=== PATIENT | male | born 1975 | race Caucasian/White ===

== ENCOUNTER 2020-10-19 16:03 | Outpatient (RCR) | payer OTHER, SELFPAY ==
--- NOTE | 2020-10-19 17:36 | PTOPEVAL ---
Thank you for referring Gagan Burdick to [facility] [place].? The patient is scheduled to be seen for therapy? ____x/week for ___ weeks. Please review, sign, date and return this plan of care ROSAURA. I agree with and certify that the following plan of care is medically necessary. Referring Physician Date Admitting Provider: Attending Provider: sean whelan Referring Provider: SaydaPT Outpatient Evaluation Start: 10/19/20 16:07 Freq: Status: Active Protocol: Document 10/19/20 16:08 ACR (Rec: 10/19/20 17:34 ACR [id number]) Therapy Assessment Status Assessment Status Assessment Status Evaluation Evaluation Information Problem Diagnosis low back pain Onset 10/04/20 Subjective Information Patient states that he has Query Text:As Reported By Patient/ been fighting his back pain Family for a few weeks and went to the chiropractor the past week and a half which is helping a bit. He states that the pain is mainly on the L side. He states he went to a neurologist and he was sent to therapy. Patient states the back pain started when he was getting laundry out of the dryer when he coughed and the pain came on. He states the only time the pain goes away after the chiroprator but only until he gets to his car. He has difficulty dressing himself especially socks and shoes, sitting for a period of time, standing up from a seated position, getting in and out of a car, decsending stairs. Patient states that he has some tingling down the front of the leg to the knee. 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
== END 2020-11-22 23:59 | disposition home or self-care (01) ==
LOC: CHSPT 16:03
DX: M54.5 Low back pain (principal)
CPT/HCPCS: 97012; 97014; 97110; 97161; G0283

== ENCOUNTER 2020-11-22 18:19 | Observation (INO) | payer OTHER, SELFPAY ==
[2020-11-22 18:27] VITALS: BP 132/94; PULSE 91; RESP 15; TEMP 36.7; O2SAT 98
--- NOTE | 2020-11-22 18:46 | ECG_ITS ---
Measurements Intervals [place] Rate: 87 P: 9 NH: 136 QRS: 45 QRSD: 87 T: 55 QT: 357 QTc: 431 Interpretive Statements SINUS RHYTHM NORMAL ECG Electronically Signed On 11-22-2020 20:09:57 CDT by Foreign Jamison D.O.
--- NOTE | 2020-11-22 19:04 | ED.GENADULT ---
HPI - General Adult General Chief complaint: GI Bleed Stated complaint: GI BLEED Time Seen by Provider: 11/22/20 18:21 Source: patient and RN notes reviewed Mode of arrival: EMS Limitations: no limitations History of Present Illness HPI narrative: This is a 44 year old male with history of alcohol abuse and chronic back pain who presents for evaluation of syncopal episode. Patient was at a family function, and he had a syncopal episode. He states he started to feel lightheaded, and his family witnessed him pass out. His family at bedside states patient was standing up and he became diaphoretic. They were able to catch patient and sit him against a chair. They report patient's blood pressure was low and he was found to have blood in his underwear. Patient admits to drink multiple beers today and he drinks daily. He has also been taking Tylenol and Aleve daily for his chronic back pain. Prior to his syncopal episode he denies having chest pain, sob, nausea, vomiting or diarrhea. He did notice his stools were dark today. He denies previous diagnosis of PUD, gastritis, esophageal varices or GI bleedings. Related Data Home Medications Medication Instructions Recorded Confirmed lisinopril-hydrochlorothiazide 1 tablet PO DAILY 11/22/20 11/23/20 fluoxetine [Prozac] 40 mg PO DAILY 11/23/20 11/23/20 nicotine 1 patch TRANSDERMAL DAILY 11/23/20 11/23/20 Allergies Allergy/AdvReac Type Severity Reaction Status Date / Time No Known Allergies Allergy Verified 11/22/20 19:10 Review of Systems Review of Systems: All systems reviewed & are unremarkable except as noted in HPI and below PMFSH Past Medical History Medical History (Updated 11/23/20 @ 02:25 by Meaghan Hammond MD) Back pain Surgical History Surgical History (Updated 11/22/20 @ 19:09 by Meagahn Hammond MD) No pertinent past surgical history Family History Family History (Updated 11/23/20 @ 00:42 by Maddi Hwang RN) Father Lymphoma Mother Uterine cancer Social History Social History (Updated 11/22/20 @ 19:10 by Meaghan Hammond MD) Smoking status: Former smoker Smokeless tobacco user: other Alcohol intake: current Drinks per week: 90 Substance use: never Substance use type: does not use Gender identity (if verbalized by the patient): Male Sexual Orientation (if Verbalized by the Patient): Straight or Heterosexual Spiritual care concerns: No Exam Const: General: no acute distress and alert Orientation/consciousness: patient oriented x3 HENMT: Head: normocephalic and atraumatic Face and sinus: face symmetric Mouth: Yes Normal oral and palatal mucosa present, Yes lip normal, Yes oropharynx normal and Yes moist mucous membranes Eyes: EOM: EOMs intact bilaterally Chest: Chest palpation & inspection: normal inspection of the chest Resp: Effort & Inspection: normal respiratory effort and no retractions Auscultation: clear to auscultation bilaterally Cardio: Rate: regular rate Rhythm: regular rhythm Heart sounds: no murmurs GI: GI Palp: Yes Soft to palpation, No Tenderness to palpation present (GI) and No Guarding due to palpation present (GI) Auscultation: normal bowel sounds Rectal Exam: Abnormal stool present and heme positive stool Other: no external hemorrhoids, on digital exam dark blood present, no active bleeding Skin: General skin exam: normal color Rashes: no rashes Neuro: General: patient oriented x3, moves all extremities and CN's II-XI intact bilaterally Psych: Mental Status: mental status grossly normal Affect: normal affect Course Reevaluation(s) Reevaluation #1: I discussed with patient that he will be admitted for possible GI bleed as cause of his syncopal episode. He has been given IVF and protonix. Date: 11/22/20 Time: 21:30 Consultations Consultation #1: I Discussed case with DR. Coleman. She accepts patient for observation for syncope and GI bleeding. She agrees with amina
[2020-11-22 19:13] VITALS: BP 116/84; BP 129/80; PULSE 104; PULSE 85
[2020-11-22 19:14] VITALS: BP 102/66; PULSE 109
[2020-11-22 19:53] LABS: Basophils Absolute Auto 0.1 K/mm3 (0.0-0.1); Basophils Percent Auto 0.6 % (0.2-1.2); Eosinophils Percent Auto 0.1 % (0-4.4); Hematocrit 36.2 % (42.0-52.0); Hemoglobin 12.2 g/dL (14.0-18.0); Immature Granulocyte Absolute 0.15 K/mm3 (0.00-0.031); Immature Granulocyte Percent A 1.7 % (0-0.5); Mean Corpuscular HGB Conc 33.7 g/dl (32-36); Mean Corpuscular Hemoglobin 34.6 pg (26-34); Mean Corpuscular Volume 102.5 fl (80-100); Mean Platelet Volume 9.3 fl (7.4-10.4); Monocytes Absolute Auto 0.7 K/mm3 (0.1-0.6); Monocytes Percent Auto 7.9 % (2.6-8.5); Neutrophils Absolute Auto 7.2 K/mm3 (1.3-6.7); Neutrophils Percent Auto 80.7 % (45.5-73.1); Platelet Count Result 180 k/mm3 (150-375); Red Blood Count 3.53 M/mm3 (4.6-6.20); White Blood Count 8.9 K/mm3 (4.5-10.0)
[2020-11-22] MEDS: PANTOPRAZOLE SODIUM IV 40 MG VIAL 80 MG IV PUSH (19:56)
[2020-11-22] MEDS: SODIUM CHLORIDE 0.9% IV 1,000 ML 999 ML IV CONT (19:57)
[2020-11-22 19:59] LABS: Ethanol 111 mg/dL (<10); INR 0.9; Prothrombin Time 12.2 Seconds (11.1-14.7)
[2020-11-22 20:00] LABS: Alanine Aminotransferase 59 U/L (4-50); Albumin Level 3.7 g/dL (3.5-5.1); Alkaline Phosphatase 46 U/L (38-126); Anion Gap 12 mmol/L (8-16); Aspartate Amino Transferase 62 U/L (17-59); Bilirubin,Total 0.5 mg/dL (0.2-1.3); Blood Urea Nitrogen 11 mg/dL (9-20); Calcium 8.4 mg/dL (8.4-10.2); Carbon Dioxide 19 mmol/L (22-30); Chloride 96 mmol/L (98-107); Estimated CRCL calculation 148 ml/min; Estimated Glomerular Filt Rate > 60; Glucose 94 mg/dL (65-110); Magnesium 1.8 mg/dL (1.6-2.3); Partial Thromboplastin Time 23.2 SECONDS (22.3-36.8); Potassium 3.8 mmol/L (3.4-5.0); Sodium 127 mmol/L (137-145)
[2020-11-22 20:10] LABS: Troponin I < 0.012 ng/mL (0.000-0.034)
[2020-11-22 21:16] VITALS: BP 131/91; PULSE 92; RESP 16; O2SAT 98
[2020-11-22 23:37] VITALS: BP 147/94; PULSE 93; RESP 12; O2SAT 98
[2020-11-23] VITALS (16 sets, daily range): BP systolic 96–176; BP diastolic 58–93; PULSE 75–110; RESP 16–20; TEMP 36.1–36.7; O2SAT 96–99; BMI 28.3
--- NOTE | 2020-11-23 | ECHO_ITS ---
Patient Info Name: Gagan Burdick Age: 44 years : 1975 Gender: Male Ht: 73 in Wt: 215 lbs BSA: 2.26 m2 HR: 83 bpm BP: 155 / 86 mmHg Heart Rhythm: Sinus Rhythm Exam Date: 11/23/2020 12:48 PM Exam Location: [facility] Pulmonary Exam Room: 246 Patient Status: Outpatient Admit Date: 11/22/2020 Staff Ordering Physician: Kayley Colon MD Bolt Loader: Estefania Hinkle RDCS Attending Provider: Kusum Coleman MD Exam Type: CA echo doppler color flow Study Info Indications - syncope Complete two-dimensional, color flow and Doppler transthoracic echocardiogram is performed. Summary 1. Complete two-dimensional, color flow and Doppler transthoracic echocardiogram is performed. 2. Left ventricular chamber dimension is normal. 3. Left ventricular systolic function is hyperdynamic, estimated at >70%. 4. There is mildly increased left ventricular wall thickness. 5. Right atrial chamber dimension is mildly enlarged. 6. There is trace tricuspid valve regurgitation. 7. No pulmonary hypertension, estimated pulmonary arterial systolic pressure is 28 mmHg. 8. There is no mitral valve regurgitation. 9. There is no aortic valve stenosis. Left Ventricle Left ventricular chamber dimension is normal. Left ventricular systolic function is hyperdynamic, estimated at >70%. There is mildly increased left ventricular wall thickness. The left ventricular diastolic function is abnormal. Right Ventricle Right ventricular chamber dimension is normal. Right ventricular systolic function is normal. Left Atria Left atrial chamber dimension is normal. Right Atria Right atrial chamber dimension is mildly enlarged. Aortic Valve The aortic valve is not well visualized. There is no aortic valve stenosis. There is no aortic valve regurgitation. Pulmonic Valve The pulmonic valve is not well visualized. Mitral Valve The mitral valve has normal leaflets. There is no mitral valve regurgitation. Tricuspid Valve The tricuspid valve leaflets are normal. There is trace tricuspid valve regurgitation. No pulmonary hypertension, estimated pulmonary arterial systolic pressure is 28 mmHg. Pericardium/Pleural The pericardium appears normal. Inferior Vena Cava Normal inferior vena cava with >50% collapse upon inspiration consistent with normal right atrial pressure, 5 mmHg. Aorta The aortic root size at the sinus of Valsalva is normal. Left Ventricular Outflow Tract Name Value Normal LVOT 2D LVOT Diameter 2.1 cm LVOT Doppler LVOT Peak Gradient 8 mmHg LVOT Mean Gradient 5 mmHg LVOT VTI 27 cm LVOT VTI/AV VTI Ratio 1.0 LVOT Stroke Volume 91 ml LVOT CO 20.1 l/min LVOT CI 8.9 l/min/m2 Pulmonic Valve Name Value Normal
--- NOTE | 2020-11-23 00:33 | ADMGEN ---
This patient, Gagan Burdick, was admitted to Medical Room 246-. Patient/family oriented to hospital policies and general routines including ID bracelet, bed and alarms, visiting hours, pain management, procedures, bathroom and other care routines, personal items, smoking policy, room service/diet, and visiting hours. Information on how to activate the Rapid Response Team has been discussed. Patient/Family are encouraged to report perceived risks to care and to ask questions if they do not understand what they are told or what they should do.
--- NOTE | 2020-11-23 00:42 | PM.IMHP ---
H&P: HPI History of Present Illness Date/Time: 11/23/20 00:42 Chief Complaint: Bright red blood blood per rectum Narrative: This is a 44-year-old male with past medical history significant for hypertension, tobacco dependence, alcohol dependence patient drinks 6-12 beers daily had a recent fall while intoxicated with alcohol with scrapes to both of his knees. Patient presented today after he had an episode where he became diaphoretic and had a near syncope he then noticed a bleed through his rectum of bright red blood. He presented to the emergency room via EMS. Patient states that he has been his usual state of health prior to this no prior episodes of bleeding or black stool no hematemesis no weight loss no nausea or vomiting. However he has had lower back pain for which he had been scheduled for MRI in the outpatient setting and he has been taking a lot of Aleve for this. Preliminary workup was significant for a guaiac-positive stool. Review of Systems Review of Systems: Near-syncope bright red blood per rectum episode Constitutional: Constitutional: Denies chills, Denies fatigue and Denies fever(s) Eyes: Eyes: Denies change in vision ENT: Denies dysphagia, Denies nasal congestion, Denies nasal discharge, Denies nasal obstruction and Denies odynophagia Cardiovascular: Cardiovascular: Reports syncope, Denies irregular heart rhythm, Reports lightheadedness, Denies radiating jaw, neck or arm pain, Denies palpitations and Denies dyspnea on exertion Respiratory: Respiratory: Denies cough and Denies dyspnea Gastrointestinal: Gastrointestinal: Denies melena, Reports hematochezia, Denies dyspepsia, Denies nausea and Denies vomiting Genitourinary: Genitourinary: Reports no additional male genitourinary complaints Musculoskeletal: Musculoskeletal: Reports back pain Comments: Lower back pain Integumentary/Breasts: Skin/Breast: Reports system reviewed and no additional complaints, except as docu Neurologic: Reports tremor(s) Psychiatric: Psychiatric: Reports anxiety Endocrine: Endocrine: Reports no additional endocrine complaints Hematologic/Lymphatic: Hematologic/Lymphatic: Reports no additional hematologic/lymphatic complaints Allergic/Immunologic: Allergic/Immunologic: Reports no additional allergic/immunologic complaints PMFSH Past Medical History Medical History (Updated 11/23/20 @ 00:59 by Kusum Coleman MD) Back pain Surgical History Surgical History (Updated 11/22/20 @ 19:09 by Meaghan Hammond MD) No pertinent past surgical history Family History Family History (Updated 11/23/20 @ 00:42 by Maddi Hwang RN) Father Lymphoma Mother Uterine cancer Social History Social History (Updated 11/22/20 @ 19:10 by Meaghan Hammond MD) Alcohol intake: current Drinks per week: 90 Substance use: never Substance use type: does not use Gender identity (if verbalized by the patient): Male Sexual Orientation (if Verbalized by the Patient): Straight or Heterosexual Spiritual care concerns: No Meds Home Medications and Allergies Home Medications Medication Instructions Recorded Confirmed Type lisinopril-hydrochlorothiazide 1 tablet PO DAILY 11/22/20 11/23/20 History fluoxetine [Prozac] 40 mg PO DAILY 11/23/20 11/23/20 History nicotine 1 patch TRANSDERMAL DAILY 11/23/20 11/23/20 History Allergies Allergy/AdvReac Type Severity Reaction Status Date / Time No Known Allergies Allergy Verified 11/22/20 19:10 Vital Signs Vital Signs - 24 hr 11/22/20 18:27 11/22/20 19:13 11/22/20 19:14 Temperature 98.1 F Pulse Rate 91 104 H 109 H Respiratory Rate 15 Blood Pressure 132/94 H 116/84 102/66 Pulse Oximetry 98 11/22/20 21:16 11/22/20 23:37 11/23/20 00:35 Temperature 97.7 F Pulse Rate 92 93 82 Respiratory Rate 16 12 20 Blood Pressure 131/91 H 147/94 H 176/92 H Pulse Oximetry 98 98 99 Exam Narrative: Laying in gurney Const: General: cooperative, comfo
[2020-11-23] MEDS: SODIUM CHLORIDE 0.9% IV 1,000 ML 125 ML IV CONT ×2 (01:01→22:13)
[2020-11-23] MEDS: LORazepam INJ (*CRX) 2 MG/ML VIAL IV PUSH (01:07)
[2020-11-23 01:52] LABS: Hematocrit 33.4 % (42.0-52.0); Hemoglobin 11.4 g/dL (14.0-18.0)
[2020-11-23] MEDS: THIAMINE HCL INJ 100 MG, FOLIC ACID INJ 1 MG, MULTIVITAMINS-12 INJ VIAL 1 5 ML, MULTIVI... IV CONT (03:47)
[2020-11-23] MEDS: chlordiazePOXIDE (*CRX) 25 MG CAPSULE 50 MG PO ×3 (05:50→23:55)
[2020-11-23 05:55] LABS: Hematocrit 32.6 % (42.0-52.0)
--- NOTE | 2020-11-23 07:14 | PM.IMPN ---
Progress Note: A&P Assessment and Plan (1) BRBPR (bright red blood per rectum): Code(s): K62.5 - Hemorrhage of anus and rectum Status: Acute Assessment and Plan: GI consult recommendations appreciated. He will have upper GI endoscopy today. Continue pantoprazole 40 mg IV twice a day for now. Patient has been taking Aleve with 2 tablets every 8 hours for the last 10-14 days. Continue to monitor H and H. his hemoglobin was 11.0 today. PRBC transfusion not indicated at this time. PRBC transfusion if indicated and hemoglobin is down to 8 or less. (2) Alcohol dependence: Code(s): F10.20 - Alcohol dependence, uncomplicated Status: Acute Assessment and Plan: Currently on CIWA protocol. He is mildly tremulous. Ativan as per CIWA protocol. Continue Librium and wean based on his symptoms. Banana bag head worker will provide information about resources to quit drinking. (3) Tobacco dependence: Code(s): F17.200 - Nicotine dependence, unspecified, uncomplicated Status: Acute Assessment and Plan: Nicotine patch as needed (4) Alcohol withdrawal: Code(s): F10.239 - Alcohol dependence with withdrawal, unspecified Status: Acute Assessment and Plan: As above (5) Hyponatremia: Code(s): E87.1 - Hypo-osmolality and hyponatremia Status: Acute Assessment and Plan: He has received banana bag and Ringer's lactate. Will put him on normal saline and his his serum sodium was 127 today. (6) Syncope: Code(s): R55 - Syncope and collapse Status: Acute Assessment and Plan: Had 2 episode of syncope yesterday as well as 1 few months ago. Likely related to his alcohol and GI issues. Echo has been ordered. Continue to monitor on telemetry. Cardiology will be consulted. Subjective Date/time seen: 11/23/20 07:14 He has mentioned that he was taking Aleve for his back pain for the last 10-14 days with 2 tablets every 6-8 hours. He had 1 bowel movement here which was dark in color. He was tremulous today. Takes 6-10 beers a day and gets tremulous and anxious if he does not drink. He had 2 episodes of syncope yesterday. He recalled 1 episode of syncope few months ago as well. He denied have any focal neurological weakness visual symptoms headache nausea vomiting hematochezia. Denied have any shortness of breath chest pain or abdominal pain. Review of Systems Review of Systems: A comprehensive review of systems has been reviewed with the patient and most of the symptoms are negative except the one's mentioned above in HPI. 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 Anxious. Extremities no edema Objective Data Vital Signs Vital Signs: Vital Signs - 24 hr 11/22/20 18:27 11/22/20 19:13 11/22/20 19:14 Temperature 36.7 C Pulse Rate 91 104 H 109 H Respiratory Rate 15 Blood Pressure 132/94 H 116/84 102/66 Pulse Oximetry 98 11/22/20 21:16 11/22/20 23:37 11/23/20 00:35 Temperature 36.5 C Pulse Rate 92 93 82 Respiratory Rate 16 12 20 Blood Pressure 131/91 H 147/94 H 176/92 H Pulse Oximetry 98 98 99 11/23/20 01:30 11/23/20 01:48 11/23/20 04:00 Temperature Pulse Rate 85 82 Respiratory Rate Blood Pressure 146/86 H Pulse Oximetry 11/23/20 05:15 Temperature 36.1 C L Pulse Rate 75 Respiratory Rate 16 Blood Pressure 155/86 H Pulse Oximetry 98 Intake/Output Intake/Output: Intake & Output 11/20/20 11/21/20 11/22/20 11/23/20 23:59 23:59 23:59 23:59 Intake Total 1000 Output Total 1200 Balance 1000 -1200 Meds/Results Medications: Active Medications Generic Name Dose Route Start Last Admin Trade Name Freq PRN
--- NOTE | 2020-11-23 07:21 | WPDGICN ---
Assessment and Plan Assessment and plan (1) Acute GI bleeding: Code(s): K92.2 - Gastrointestinal hemorrhage, unspecified Status: Acute Assessment and Plan: given that his stools are primarily black and he has been on Aleve he most likely has an upper gastrointestinal bleed. Will schedule him for EGD to be done later today (2) Alcohol abuse: Code(s): F10.10 - Alcohol abuse, uncomplicated Status: Acute Assessment and Plan: he states that he went to in to rehab Once, but obviously relapsed. He is a bit tremulous this morning. Will need to watch for possible withdrawal syndrome. GI Consult Note Consult date/time: 11/23/20 07:21 HPI: Gagan Burdick is a 44 year old male Who presented to the emergency room with a history of being lightheaded and having black stool. He states that he drinks regularly, 6-12 beers per day and over the last week he has had friends in town and has been drinking more than usual and not eating well. He then noted his stools were black. They also have been a rather loose. He states he also cell some reddish blood in his underwear. He has a bad back and for this he has been using 6 relieved tablets each day. He has had no prior gastrointestinal illnesses. He was once admitted for detox related to alcohol abuse several years ago but not at this hospital. He is not aware of any family history of digestive diseases. Contrary to the ER note he does not have a significant amount of red blood in his stool. It mainly black and liquid Review of Systems Review of Systems: All systems reviewed & are unremarkable except as noted in HPI and below PMFSH Past Medical History Medical History Back pain Surgical History Surgical History No pertinent past surgical history Family History Family History Father Lymphoma Mother Uterine cancer Social History Social History Smoking status: Former smoker Smokeless tobacco user: other Alcohol intake: current Drinks per week: 90 Substance use: never Substance use type: does not use Gender identity (if verbalized by the patient): Male Sexual Orientation (if Verbalized by the Patient): Straight or Heterosexual Spiritual care concerns: No Meds Home Medications and Allergies Home Medications Medication Instructions Recorded Confirmed Type lisinopril-hydrochlorothiazide 1 tablet PO DAILY 11/22/20 11/23/20 History fluoxetine [Prozac] 40 mg PO DAILY 11/23/20 11/23/20 History nicotine 1 patch TRANSDERMAL DAILY 11/23/20 11/23/20 History Allergies Allergy/AdvReac Type Severity Reaction Status Date / Time No Known Allergies Allergy Verified 11/22/20 19:10 Vital Signs Vital Signs - 24 hr 11/22/20 18:27 11/22/20 19:13 11/22/20 19:14 Temperature 36.7 C Pulse Rate 91 104 H 109 H Respiratory Rate 15 Blood Pressure 132/94 H 116/84 102/66 Pulse Oximetry 98 11/22/20 21:16 11/22/20 23:37 11/23/20 00:35 Temperature 36.5 C Pulse Rate 92 93 82 Respiratory Rate 16 12 20 Blood Pressure 131/91 H 147/94 H 176/92 H Pulse Oximetry 98 98 99 11/23/20 01:30 11/23/20 01:48 11/23/20 04:00 Temperature Pulse Rate 85 82 Respiratory Rate Blood Pressure 146/86 H Pulse Oximetry 11/23/20 05:15 Temperature 36.1 C L Pulse Rate 75 Respiratory Rate 16 Blood Pressure 155/86 H Pulse Oximetry 98 Exam Neuro: General: patient oriented x3 Motor exam (neuro): Tremors during motor activity present ( shaky hands and facial muscles) Results Labs CBC & Chem 7: 11/23/20 05:31 11/22/20 19:28 Labs: Short CBC 11/22/20 11/23/20 11/23/20 Range/Units 19:28 01:45 05:31 WBC 8.9 (4.5-10.0) K/mm3 Hgb 12.2 L 11.4 L 11.0 L (14.0-18
[2020-11-23] MEDS: NICOTINE (*PBKC) 21 MG PATCH 1 PATCH TRANSDERM (09:03)
[2020-11-23] MEDS: PANTOPRAZOLE SODIUM IV 40 MG VIAL IV PUSH ×2 (09:04→22:14)
[2020-11-23 09:45] LABS: Hematocrit 34.2 % (42.0-52.0); Hemoglobin 11.6 g/dL (14.0-18.0)
[2020-11-23] MEDS: LORazepam INJ (*CRX) 2 MG/ML VIAL 1 MG IV PUSH ×3 (09:51→17:49)
--- NOTE | 2020-11-23 13:01 | WPDANESEPPF ---
Anes - Initial Pre Proc Eval Procedure: Operation Date: 11/23/20 14:15 Proposed Procedures p Esophagogastroduodenoscopy - Leonidas Catalan MD Date/Time: 11/23/20 13:01 Surgeon: Kusum Coleman MD Pre Op Diagnosis: Syncope, GI Bleeding, Alcohol Abuse Patient Data Age: 44 Gender: M Height: 1.85 m Weight: 97.6 kg Last Vital Signs Temp 36.1 C L 11/23/20 05:15 Pulse 75 11/23/20 05:15 Resp 16 11/23/20 05:15 BP 155/86 H 11/23/20 05:15 Pulse Ox 98 11/23/20 05:15 Allergies Allergy/AdvReac Type Severity Reaction Status Date / Time No Known Allergies Allergy Verified 11/23/20 13:59 Home Medications Medication Instructions Recorded Confirmed Type lisinopril-hydrochlorothiazide 1 tablet PO DAILY 11/22/20 11/23/20 History fluoxetine [Prozac] 40 mg PO DAILY 11/23/20 11/23/20 History nicotine 1 patch TRANSDERMAL DAILY 11/23/20 11/23/20 History chlordiazepoxide HCl 25 mg PO Q8-10H PRN #9 cap 11/24/20 Rx pantoprazole 40 mg PO QAM 28 Days #28 tablet 11/24/20 Rx Laboratory Tests 11/22/20 11/22/20 11/22/20 19:28 19:28 19:28 WBC 8.9 K/mm3 K/mm3 (4.5-10.0) RBC 3.53 M/mm3 L M/mm3 (4.6-6.20) Hgb 12.2 g/dL L g/dL (14.0-18.0) Hct 36.2 % L % (42.0-52.0) MCV 102.5 fl H fl (80-100) MCH 34.6 pg H pg (26-34) MCHC 33.7 g/dl g/dl (32-36) RDW 12.0 % % (11.5-14.5) Plt Count 180 k/mm3 k/mm3 (150-375) MPV 9.3 fl fl (7.4-10.4) Immature Gran % (Auto) 1.7 % H % (0-0.5) Neut % (Auto) 80.7 % H % (45.5-73.1) Lymph % (Auto) 9.0 % L % (18.3-44.2) Howell % (Auto) 7.9 % % (2.6-8.5) Eos % (Auto) 0.1 % % (0-4.4) Baso % (Auto) 0.6 % % (0.2-1.2) Lymph # (Auto) 0.80 K/mm3 L K/mm3 (0.9-3.2) Howell # (Auto) 0.7 K/mm3 H K/mm3 (0.1-0.6) Eos # (Auto) 0.0 K/mm3 K/mm3 (0-0.3) Baso # (Auto) 0.1 K/mm3 K/mm3 (0.0-0.1) Abs Immat Gran (auto) 0.15 K/mm3 H K/mm3 (0.00-0.031) Absolute Neuts (auto) 7.2 K/mm3 H K/mm3 (1.3-6.7) Absolute Nucleated RBC 0.0 K/mm3 K/mm3 (0.0-0.012) Nucleated RBC % 0.0 % % (0.0-0.2) PT 12.2 Seconds Seconds (11.1-14.7) INR 0.9 APTT 23.2 SECONDS SECONDS (22.3-36.8) Sodium 127 mmol/L L mmol/L (137-145) Potassium 3.8 mmol/L mmol/L (3.4-5.0) Chloride 96 mmol/L L mmol/L (98-107) Carbon Dioxide 19 mmol/L L mmol/L (22-30) Anion Gap 12 mmol/L mmol/L (8-16) BUN 11 mg/dL mg/dL (9-20) Creatinine 0.60 mg/dL L mg/dL (0.7-1.3) Estim Creat Clear Calc 148 ml/min ml/min Estimated GFR > 60 (59 - ) Glucose 94 mg/dL mg/dL (65-110) Calcium 8.4 mg/dL mg/dL (8.4-10.2) Magnesium 1.8 mg/dL mg/dL (1.6-2.3) Total Bilirubin 0.5 mg/dL mg/dL (0.2-1.3) AST 62 U/L H U/L (17-59) ALT 59 U/L H U/L (4-50) Alkaline Phosphatase 46 U/L U/L (38-126) Troponin I < 0.012 ng/mL ng/mL (0.000-0.034) Total Protein 7.0 g/dL g/dL (6.3-8.2) Albumin 3.7 g/dL g/dL (3.5-5.1) Ethyl Alcohol Blood Type Antibody Screen 11/22/20 11/22/20 11/23/20 19:28 19:28 01:45 WBC RBC Hgb 11.4 g/dL L g/dL (14.0-18.0) Hct 33.4 % L % (42.0-52.0) MCV MCH MCHC RDW Plt Count MPV Immature Gran % (Auto) Neut % (Auto) Lymph % (Auto) Howell % (Auto) Eos % (Auto) Baso % (Auto) Lymph # (Auto) Howell # (Auto) Eos # (Auto) Baso # (Auto) Abs Immat Gran (auto) Absolute
--- NOTE | 2020-11-23 13:45 | PC.NURSE ---
pt to GI lab via galo
[2020-11-23] MEDS: LACTATED RINGERS 1,000 ML 150 ML IV CONT (14:12)
[2020-11-23] MEDS: SIMETHICONE ORAL SUSPENSION 20 MG/0.3 ML 30 ML BOTTLE 0.6 ML PO (15:01)
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
[2020-11-23 20:22] LABS: Hematocrit 35.4 % (42.0-52.0)
[2020-11-24] VITALS: PULSE 76
[2020-11-24] MEDS: SODIUM CHLORIDE 0.9% IV 1,000 ML 125 ML IV CONT
[2020-11-24 04:00] VITALS: PULSE 67
[2020-11-24] MEDS: chlordiazePOXIDE (*CRX) 25 MG CAPSULE 50 MG PO (05:47)
[2020-11-24 06:00] VITALS: BP 127/78; PULSE 65; RESP 16; TEMP 36.8; O2SAT 98
[2020-11-24 06:15] LABS: Basophils Absolute Auto 0.1 K/mm3 (0.0-0.1); Eosinophils Absolute Auto 0.1 K/mm3 (0-0.3); Eosinophils Percent Auto 1.7 % (0-4.4); Hematocrit 35.2 % (42.0-52.0); Hemoglobin 11.5 g/dL (14.0-18.0); Immature Granulocyte Absolute 0.08 K/mm3 (0.00-0.031); Immature Granulocyte Percent A 1.4 % (0-0.5); Lymphocytes Absolute Auto 1.35 K/mm3 (0.9-3.2); Lymphocytes Percent Auto 23.2 % (18.3-44.2); Mean Corpuscular HGB Conc 32.7 g/dl (32-36); Mean Corpuscular Hemoglobin 34.3 pg (26-34); Mean Corpuscular Volume 105.1 fl (80-100); Mean Platelet Volume 10.1 fl (7.4-10.4); Monocytes Absolute Auto 0.6 K/mm3 (0.1-0.6); Neutrophils Absolute Auto 3.6 K/mm3 (1.3-6.7); Neutrophils Percent Auto 61.7 % (45.5-73.1); Platelet Count Result 171 k/mm3 (150-375); Red Blood Count 3.35 M/mm3 (4.6-6.20); Red Cell Distribution Width 11.9 % (11.5-14.5); White Blood Count 5.8 K/mm3 (4.5-10.0)
[2020-11-24 06:28] LABS: Anion Gap 3 mmol/L (8-16); Blood Urea Nitrogen 11 mg/dL (9-20); Calcium 8.5 mg/dL (8.4-10.2); Carbon Dioxide 31 mmol/L (22-30); Chloride 99 mmol/L (98-107); Estimated CRCL calculation 128 ml/min; Estimated Glomerular Filt Rate > 60; Glucose 100 mg/dL (65-110); Magnesium 1.8 mg/dL (1.6-2.3); Sodium 133 mmol/L (137-145)
[2020-11-24 08:00] VITALS: PULSE 75
[2020-11-24] MEDS: PANTOPRAZOLE SODIUM IV 40 MG VIAL IV PUSH (08:03)
[2020-11-24] MEDS: NICOTINE (*PBKC) 21 MG PATCH 1 PATCH TRANSDERM (08:04)
[2020-11-24] MEDS: FLUoxetine HCL 20 MG CAPSULE 40 MG PO (08:04)
--- NOTE | 2020-11-24 08:47 | WPDGIPROGNO ---
Progress Note: A&P Assessment and Plan (1) Acute GI bleeding: Code(s): K92.2 - Gastrointestinal hemorrhage, unspecified Status: Acute Assessment and Plan: There is no evidence of bleeding now. His blood counts are stable. I told that I would want him to call me if he has any sign of bleeding. Also told Him she get a repeat CBC with his primary care physician in a couple weeks. (2) Alcohol withdrawal: Code(s): F10.239 - Alcohol dependence with withdrawal, unspecified Status: Acute Assessment and Plan: he is not shaky today as yesterday. I believe that he will do well now. He is hopeful that he will be going home on chlordiazepoxide (3) Alcohol abuse: Code(s): F10.10 - Alcohol abuse, uncomplicated Status: Acute Assessment and Plan: he again acknowledge at this is a problem and he is going to do his best to abstain from alcohol. I reminded him that continued use of alcohol could cause serious liver disease with cirrhosis leading to portal hypertension, esophageal varices etcetera Subjective Date/time seen: 11/24/20 08:47 he feels good today. He slept fairly well last night. He denies abdominal pain nausea vomiting, in fact is eating his breakfast. Yesterday when we discussed doing a colonoscopy he seemed to be very nauseated and I did not think he could tolerate a prep. Review of Systems Review of Systems: All systems reviewed & are unremarkable except as noted in HPI and below Exam Const: General: comfortable, alert and awake Orientation/consciousness: patient oriented x3 GI: Inspection: normal to inspection GI Palp: Yes Soft to palpation, No Tenderness to palpation present (GI) and Yes No hepatosplenomegaly present Auscultation: normal bowel sounds Objective Data Vital Signs Vital Signs: Vital Signs - 24 hr 11/23/20 12:00 11/23/20 14:00 11/23/20 14:02 Temperature 36.4 C 36.4 C L Pulse Rate 79 85 95 Respiratory Rate 18 18 Blood Pressure 130/88 135/93 H Pulse Oximetry 99 97 11/23/20 15:12 11/23/20 15:22 11/23/20 15:32 Temperature Pulse Rate 80 90 85 Respiratory Rate 16 18 19 Blood Pressure 113/67 135/87 131/90 Pulse Oximetry 99 99 99 11/23/20 20:03 11/23/20 22:00 11/23/20 22:06 Temperature 36.7 C 36.7 C Pulse Rate 99 100 100 Respiratory Rate 16 16 Blood Pressure 119/69 119/69 Pulse Oximetry 96 96 11/23/20 22:07 11/24/20 00:00 11/24/20 04:00 Temperature 36.7 C Pulse Rate 110 H 76 67 Respiratory Rate 18 Blood Pressure 96/58 L Pulse Oximetry 96 11/24/20 06:00 Temperature 36.8 C Pulse Rate 65 Respiratory Rate 16 Blood Pressure 127/78 Pulse Oximetry 98 Intake/Output Intake/Output: Intake & Output 11/21/20 11/22/20 11/23/20 11/24/20 23:59 23:59 23:59 23:59 Intake Total 1000 3400 2000 Output Total 2050 1600 Balance 1000 1350 400 Meds/Results Medications: Active Medications Generic Name Dose Route Start Last Admin Trade Name Freq PRN Reason Stop Dose Admin Chlordiazepoxide HCl 50 mg 11/23/20 06:00 11/24/20 05:47 Chlordiazepoxide (*Crx) 25 Mg Capsule PO 50 mg Q6HR ANTONI Administration Fluoxetine HCl 40 mg 11/23/20 09:00 11/24/20 08:04 Fluoxetine Hcl 20 Mg Capsule PO 40 mg DAILY ANTONI Administration Hydralazine HCl 10 mg 11/23/20 00:41 Hydralazine Hcl 20 Mg/Ml Vial IV PUSH Q8H PRN Blood Pressure - High [id number] Sodium Chloride 1,000 mls @ 75 mls/hr 11/22/20 21:50 11/24/20 00:00 Normal Saline Iv IV CONT 125 mls/hr .[id number] ANTONI Administration Lorazepam 1 mg 11/23/20 01:00 11/23/20 17:49 Lorazepam Inj (*Crx) 2 Mg/Ml Vial IV PUSH 1 mg Q3H PRN Administration Tremors, DT's Nicotine 1 patch 11/23/20 09:00 11/24/20 08:04 Nicotine (*Pbkc) 21 Mg Patch TRANSDERM 1 patch DAILY ANTONI Administration Ondansetron HCl 4 mg 11/22/20 21:50 Ondansetron Inj 4 Mg/2 Ml Vial IV PUSH Q4H PRN Nausea Pantoprazole Sodi
--- NOTE | 2020-11-24 11:09 | PM.DS ---
DS: Admitting Diagnosis Admitting Diagnosis GI bleed with bright red blood per rectum Alcohol abuse Smoker Alcohol withdrawal DS: Discharge Diagnosis Discharge Diagnosis (1) BRBPR (bright red blood per rectum): Code(s): K62.5 - Hemorrhage of anus and rectum Status: Acute Assessment and Plan: GI consult recommendations appreciated. He had upper GI endoscopy which showed esophagitis and duodenitis. No further intervention planned by gastroenterology service and he is clear for discharge. His H&H remained stable. Continue pantoprazole 40 mg IV twice a day while he was here in the hospital. He will be transitioned to p.o. pantoprazole at the time of discharge for 4 weeks. Patient has been taking Aleve with 2 tablets every 8 hours for the last 10-14 days. He was encouraged to stop taking it. Continue to monitor H and H. his hemoglobin was 11.0 today. He did not require any PRBC transfusion. He did not have any further bleeding with no hematochezia and melena. His hemodynamics remained stable. (2) Alcohol dependence: Code(s): F10.20 - Alcohol dependence, uncomplicated Status: Acute Assessment and Plan: Currently on CIWA protocol. He required only 2 doses of Ativan yesterday. Continue Librium and will be discharged on 3 more days of Librium. Banana bag was given custodial maintenance worker will provide information about resources to quit drinking. (3) Tobacco dependence: Code(s): F17.200 - Nicotine dependence, unspecified, uncomplicated Status: Acute Assessment and Plan: Nicotine patch as needed (4) Alcohol withdrawal: Code(s): F10.239 - Alcohol dependence with withdrawal, unspecified Status: Acute Assessment and Plan: As above (5) Hyponatremia: Code(s): E87.1 - Hypo-osmolality and hyponatremia Status: Acute Assessment and Plan: He has received banana bag and Ringer's lactate. Will put him on normal saline and his his serum sodium was 127 today. His serum sodium improved with normal saline. (6) Syncope: Code(s): R55 - Syncope and collapse Status: Acute Assessment and Plan: Had 2 episode of syncope yesterday as well as 1 few months ago. Likely related to his dehydration, alcohol and GI issues. Echo was performed. Ejection fraction 70%. There is mildly increased left ventricular wall thickness. No aortic wall stenosis. Trace tricuspid valve regurgitation. Cardiology service was consulted. No events reported on telemetry. No further recommendations from cardiology service. 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 Anxious. Extremities no edema DS: Data Data Completed and Pending Labs on day of discharge: Labs from last 24 hours 11/24/20 11/24/20 11/23/20 05:11 05:11 20:15 WBC 5.8 RBC 3.35 L Hgb 11.5 L 12.0 L Hct 35.2 L 35.4 L MCV 105.1 H MCH 34.3 H MCHC 32.7 RDW 11.9 Plt Count 171 MPV 10.1 Immature Gran % (Auto) 1.4 H Neut % (Auto) 61.7 Lymph % (Auto) 23.2 Grainger % (Auto) 11.0 H Eos % (Auto) 1.7 Baso % (Auto) 1.0 Lymph # (Auto) 1.35 Grainger # (Auto) 0.6 Eos # (Auto) 0.1 Baso # (Auto) 0.1 Abs Immat Gran (auto) 0.08 H Absolute Neuts (auto) 3.6 Absolute Nucleated RBC 0.0 Nucleated RBC % 0.0 Sodium 133 L Potassium 4.0 Chloride 99 Carbon Dioxide 31 H Anion Gap 3 L BUN 11 Creatinine 0.70 Estim Creat Clear Calc 128 Estimated GFR > 60 Glucose 100 Calcium 8.5 Magnesium 1.8
== END 2020-11-24 10:45 | disposition home or self-care (01) ==
LOC: ANHED 19:02 → ANH2MED 11-23 02:25
PROVIDERS: Internal Medicine Gastroenterology; Admitting Provider Internal Medicine; Emergency Provider General Practice; PCP Internal Medicine; Visit Provider Internal Medicine Critical Care Medicine
PROC: 0DJ08ZZ Inspection of Upper Intestinal Tract, Via Natural or Artificial Opening Endoscopic (ICD-10-PCS; CPT 43235; principal; 2020-11-23 14:15)
DX: K62.5 Hemorrhage of anus and rectum (principal); F10.239 Alcohol dependence with withdrawal, unspecified; R55 Syncope and collapse; E87.1 Hypo-osmolality and hyponatremia; K29.80 Duodenitis without bleeding; F17.290 Nicotine dependence, other tobacco product, uncomplicated; I10 Essential (primary) hypertension; K21.00 Gastro-esophageal reflux disease with esophagitis, without bleeding; Z79.1 Long term (current) use of non-steroidal anti-inflammatories (NSAID)
CPT/HCPCS: 43239; 36415; 80048; 80053; 80307; 83735; 84484; 85014; 85018; 85025; 85610; 85730; 86850; 86900; 86901; 87081; 93005; 93306; 96361; 96365; 96366; 96374; 96375; 96376; 99285; A9270; C9113; G0378; J2060; J2250; J2704; J3411; J3475; J7030; J7120

== ENCOUNTER 2020-12-16 18:21 | Emergency (ER) | payer OTHER, SELFPAY ==
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
--- NOTE | 2020-12-16 18:48 | ECG_ITS ---
Measurements Intervals [place] Rate: 114 P: 47 VT: 119 QRS: 60 QRSD: 90 T: 76 QT: 320 QTc: 442 Interpretive Statements SINUS TACHYCARDIA BASELINE ARTIFACT- I, II, III, AVR, AVL, V1 ABNORMAL ECG Electronically Signed On 12-17-2020 7:56:56 CDT by Foreign Jamison D.O.
[2020-12-16 18:59] VITALS: BP 116/82; PULSE 110; RESP 20; TEMP 36.6; O2SAT 92
[2020-12-16] MEDS: THIAMINE HCL INJ 100 MG, FOLIC ACID INJ 1 MG, MULTIVITAMINS-12 INJ VIAL 1 5 ML, MULTIVI... IV CONT (19:33)
[2020-12-16 19:48] LABS: Basophils Absolute Auto 0.02 K/mm3 (0.00-0.10); Basophils Percent Auto 0.3 % (0.0-1.0); Hematocrit 40.4 % (40.0-54.0); Hemoglobin 13.7 g/dL (14.0-18.0); Immature Granulocyte Absolute 0.07 K/mm3 (0.00-0.00); Immature Granulocyte Percent A 1.1 % (0.0-0.0); Lymphocytes Absolute Auto 0.85 K/mm3 (1.10-4.50); Lymphocytes Percent Auto 13.1 % (18.0-42.0); Mean Corpuscular HGB Conc 33.9 g/dL (32.0-36.0); Mean Corpuscular Volume 100.2 fL (78.0-102.0); Mean Platelet Volume 9.4 fl (8.7-11.0); Monocytes Absolute Auto 0.66 K/mm3 (0.10-0.90); Monocytes Percent Auto 10.1 % (2.0-11.0); Neutrophils Absolute Auto 4.9 K/mm3 (1.7-7.2); Neutrophils Percent Auto 75.4 % (50.0-70.0); Platelet Count Result 176 K/mm3 (150-420); Red Blood Count 4.03 M/mm3 (4.70-6.10); White Blood Count 6.5 K/mm3 (4.8-10.8)
[2020-12-16 20:04] LABS: Amphetamine Screen Urine Negative (Negative); Barbiturate Screen Urine Negative (Negative); Benzodiazepines Screen Urine Positive (Negative); Cannabinoid Screen Urine Negative (Negative); Cocaine Screen Urine Negative (Negative); Methadone Screen Urine Negative (Negative); Opiate Screen Urine Negative (Negative); Phencyclidine Screen Urine Negative (Negative)
[2020-12-16 20:11] LABS: Alanine Aminotransferase 60 U/L (16-63); Albumin Level 3.9 g/dL (3.4-5.0); Alkaline Phosphatase 61 U/L (46-116); Anion Gap 15 mmol/L (8-16); Aspartate Amino Transferase 92 U/L (15-37); Bilirubin,Total 0.5 mg/dL (0.00-1.00); Blood Urea Nitrogen 6 mg/dL (7-18); Calcium 8.6 mg/dL (8.5-10.1); Carbon Dioxide 24 mmol/L (21-32); Chloride 102 mmol/L (98-108); Estimated CRCL calculation 98 ml/min; Estimated Glomerular Filt Rate > 60; Glucose 91 mg/dL (70-99); Lipase 71 U/L (73-393); Osmolality Calculated 289 mOsm/kg (285-295); Potassium 3.8 mmol/L (3.5-5.1); Sodium 141 mmol/L (136-145); Total Protein 7.6 g/dL (6.4-8.2); Troponin I 7.7 ng/L (0.00-60.4)
[2020-12-16 20:12] LABS: Ethanol 348 mg/dL (0-6)
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
[2020-12-16 21:26] VITALS: BP 130/86; PULSE 89; RESP 20; TEMP 36.6; O2SAT 98
== END 2020-12-16 21:32 | disposition home or self-care (01) ==
PROVIDERS: Emergency Provider Emergency Medicine; PCP Internal Medicine
DX: F10.10 Alcohol abuse, uncomplicated (principal); S13.4XXA Sprain of ligaments of cervical spine, initial encounter; V89.2XXA Person injured in unspecified motor-vehicle accident, traffic, initial encounter; Z79.899 Other long term (current) drug therapy
CPT/HCPCS: 36415; 70450; 71260; 72125; 73562; 74177; 80053; 80307; 83690; 84484; 85025; 93005; 96365; 96375; 99283; 99284; J3411; J3475; J7030; Q9967